=== PATIENT | female | born 1970 | race Caucasian/White ===

== ENCOUNTER 2021-07-01 08:00 | Outpatient (RCR) | payer OTHER | END 2021-07-08 | disposition home or self-care (01) | DX: M54.5 Low back pain (principal); M54.2 Cervicalgia; K21.9 Gastro-esophageal reflux disease without esophagitis; F17.210 Nicotine dependence, cigarettes, uncomplicated; Z85.820 Personal history of malignant melanoma of skin ==

== ENCOUNTER 2021-09-01 08:50 | Outpatient (RCR) | payer OTHER | END 2021-10-17 | disposition home or self-care (01) | DX: M54.2 Cervicalgia (principal); M54.50 Low back pain, unspecified ==

== ENCOUNTER → 2022-01-06 | Outpatient (CLI) | payer OTHER ==
--- NOTE | 2022-01-06 15:59 | Diagnostic Imaging Report ---
INDICATION: Cervical radiculopathy. Neck pain. COMPARISON: None FINDINGS: Frontal, lateral, and open-mouth radiographic views of the cervical spine were obtained. Cervical spine is seen down to the C7-T1 level on the lateral view. Evaluation of static alignment shows slight grade 1 anterolisthesis at C2-C3, C3-C4, and C7-T1 levels. There is also slight grade 1 retrolisthesis at the C5-C6 and C6-C7 levels. There is no evidence of jumped facets. Vertebral body heights are maintained. There is no acute fracture. There are moderate multilevel degenerative changes consistent with intervertebral disc height loss as well as multilevel anterior and posterior endplate osteophyte formations and multilevel facet arthropathy. These changes appear greatest at the C5-C6 and C6-C7 levels. Open-mouth view shows normal C1-C2 alignment. IMPRESSION: 1. No acute fracture or dislocation of the cervical spine. 2. Moderate multilevel degenerative changes, as described above. Dictated by: Dictated on workstation # [id number]
== END ==
LOC: RAD 12:59
PROVIDERS: ATTEND Anesthesiology Pain Medicine
DX: M47.22 Other spondylosis with radiculopathy, cervical region (principal); M43.13 Spondylolisthesis, cervicothoracic region
CPT/HCPCS: 72040

== ENCOUNTER 2022-01-30 09:12 | Outpatient (RCR) | payer OTHER | END 2022-02-14 | disposition home or self-care (01) | PROVIDERS: ATTEND Family Medicine | DX: M54.2 Cervicalgia (principal); M54.50 Low back pain, unspecified ==

== ENCOUNTER → 2022-03-06 | Outpatient (CLI) | payer OTHER ==
--- NOTE | 2022-03-06 13:42 | Diagnostic Imaging Report ---
INDICATION: FALL WITH PAIN COMPARISON: None. FINDINGS: 3 views of the right wrist demonstrate no acute fracture or dislocation. There are no focal osseous lesions. No avascular necrosis is seen. The visualized soft tissue structures are unremarkable. The pronator fat pad is not displaced. There are no radio opaque foreign bodies. IMPRESSION: 1. No acute fracture or dislocation in the right wrist. Dictated by: Dictated on workstation # [id number]
== END ==
LOC: RAD 11:35
PROVIDERS: ATTEND Nurse Practitioner Family
DX: M25.531 Pain in right wrist (principal)
CPT/HCPCS: 73110

== ENCOUNTER 2022-03-12 08:15 | Outpatient (RCR) | payer OTHER | END 2022-03-17 | disposition home or self-care (01) | PROVIDERS: ATTEND Family Medicine | DX: M54.2 Cervicalgia (principal); M53.3 Sacrococcygeal disorders, not elsewhere classified; K21.9 Gastro-esophageal reflux disease without esophagitis ==

== ENCOUNTER → 2022-09-15 | Outpatient (CLI) | payer OTHER ==
--- NOTE | 2022-09-15 09:53 | Diagnostic Imaging Report ---
INDICATION: Radiculopathy, pain COMPARISON: None available TECHNIQUE: Two radiographs of the left hip dated 09/15/2022. FINDINGS: No acute fracture or dislocation. No destructive osseous process. Minimal joint space narrowing of the left hip. The left femoral head maintains its normal shape and contour. Left sacroiliac joint is intact. IMPRESSION: No acute osseous abnormality with minimal degenerative changes present. Dictated by: Dictated on workstation # [id number]
--- NOTE | 2022-09-15 10:12 | Diagnostic Imaging Report ---
INDICATION: Spondylosis, pain. COMPARISON: None available. TECHNIQUE: Five radiographs of the lumbar spine including flexion and extension views were obtained dated 09/15/2022. FINDINGS: Five lumbar type vertebral bodies are present. Moderate apex right curvature of the lumbar spine is noted. The L2 vertebral body is slightly positioned to the right of L1. No significant anterolisthesis or retrolisthesis. No abnormal translational motion with flexion and extension. Besides endplate degenerative changes, vertebral body heights are well-maintained. Endplate degenerative changes are greatest at L2/L3 and L3/L4. Severe disc space height loss at L2/L3 and L3/L4, particularly on the left. Prominent anterior osteophytes at L2/L3 with additional multilevel lateral osteophytes. No acute fracture. The sacroiliac joints are intact. IMPRESSION: No acute osseous abnormality. Moderate apex right curvature of the lumbar spine with associated at least moderate multilevel degenerative changes, greatest at L2/L3 and L3/L4. No abnormal translational motion with flexion and extension. Dictated by: Dictated on workstation # [id number]
--- NOTE | 2022-09-15 11:09 | Diagnostic Imaging Report ---
PROCEDURE: MRI lumbar spine. TECHNIQUE: Multiplanar, multisequence MRI of the lumbar spine was performed without contrast. INDICATION: Chronic lower back pain. COMPARISON: None FINDINGS: For the purposes of this exam, last well-formed disc space is noted at the L5-S1 level. Evaluation static alignment shows moderate dextro scoliotic deformity epicentered at the L2-L3 level. There is no significant anteroretrolisthesis. There is no evidence of jumped facets. Vertebral body heights are maintained. There is no acute fracture. Evaluation marrow signal demonstrates multilevel endplate Modic changes. There is also multilevel intervertebral disc height loss with mild multilevel anterior posterior disc bulging. Visualized portions of distal cord are unremarkable. Conus terminates at approximately the L1-L2 level. No abnormal intrathecal filling defects are seen. Pre and paravertebral soft tissue structures are unremarkable. Axial images demonstrate the following: T12-L1: There is no large disc bulge or focal protrusion. There is no significant spinal canal or neuroforaminal stenosis. L1-L2: There is broad-based posterior disc bulge. This results in minimal narrowing of the spinal canal and bilateral neural foramen. L2-L3: There is disc osteophyte complex formation extending asymmetrically posteriorly and laterally on the left. As s result, there is moderate stenosis of the left neuroforamen and mild asymmetric narrowing of the spinal canal. Right neuroforamen is unremarkable. L3-L4: There is asymmetric prominent endplate disc osteophyte complex formation extending laterally to the left. There is also bilateral facet arthropathy and ligament flavum laxity. As a result, there is severe stenosis of the left neuroforamen and mild narrowing of the spinal canal. Right neuroforamen is unremarkable. L4-L5: There is asymmetric right lateral endplate disc osteophyte complex formation as well as broad-based posterior disc bulge and bilateral ligamentum flavum laxity and facet arthropathy. As a result, there is severe stenosis of the right neuroforamen and right lateral recess. There is also mild narrowing of the spinal canal and left neuroforamen. L5-S1: There is no large disc bulge or focal protrusion. There is no significant spinal canal or neuroforaminal stenosis. IMPRESSION: 1. Moderate dextroscoliotic deformity with moderate multilevel degenerative changes of the lumbar spine as described above. 2. No acute fracture or dislocation. Dictated by: Dictated on workstation # [id number]
== END ==
LOC: RAD 07:17
PROVIDERS: ATTEND Pain Medicine Interventional Pain Medicine
DX: M47.816 Spondylosis without myelopathy or radiculopathy, lumbar region (principal); M51.26 Other intervertebral disc displacement, lumbar region; M48.061 Spinal stenosis, lumbar region without neurogenic claudication
CPT/HCPCS: 72110; 72148; 73502

== ENCOUNTER 2023-04-08 15:51 | Outpatient (RCR) | payer OTHER | END 2023-04-16 | disposition home or self-care (01) | PROVIDERS: ATTEND Physical Medicine & Rehabilitation | DX: M47.816 Spondylosis without myelopathy or radiculopathy, lumbar region (principal); S76.311D Strain of muscle, fascia and tendon of the posterior muscle group at thigh level, right thigh, subsequent encounter; M51.36 Other intervertebral disc degeneration, lumbar region ==

== ENCOUNTER → 2023-05-07 | Outpatient (CLI) | payer OTHER ==
--- NOTE | 2023-05-12 14:15 | Diagnostic Imaging Report ---
3-D bilateral screening mammogram with CAD. The current study was also evaluated with a Computer Aided Detection (CAD) system. This study was compared to the prior exams of 07/15/2021 and 04/30/20. At this time there are no current complaints. As noted on the previous exams there are bilateral breast implants in place. The implants seems similar to the prior study. There is no sign of an extracapsular rupture of either implant. The fibroglandular tissue overlying the implants is heterogeneously dense. This does limit the sensitivity of this exam. Overall, there has been no significant change since the prior study. There is no primary or secondary sign of malignancy noted. IMPRESSION: 1. There is no evidence of malignancy. 2. The bilateral breast implants appear stable. ACR BI-RADS Category 1: Negative. Result letter will be mailed to the patient. Note: At least 10% of breast cancer is not imaged by mammography. Dictated by: Dictated on workstation # [id number]
== END ==
LOC: RAD 10:08
PROVIDERS: ATTEND Family Medicine
DX: Z12.31 Encounter for screening mammogram for malignant neoplasm of breast (principal); Z98.82 Breast implant status
CPT/HCPCS: 77063; 77067

== ENCOUNTER 2023-05-14 09:56 | Outpatient (RCR) | payer OTHER | END 2023-05-17 | disposition home or self-care (01) | PROVIDERS: ATTEND Physical Medicine & Rehabilitation | DX: M47.816 Spondylosis without myelopathy or radiculopathy, lumbar region (principal); S76.311D Strain of muscle, fascia and tendon of the posterior muscle group at thigh level, right thigh, subsequent encounter; M51.36 Other intervertebral disc degeneration, lumbar region; I10 Essential (primary) hypertension; K21.9 Gastro-esophageal reflux disease without esophagitis; X58.XXXD Exposure to other specified factors, subsequent encounter ==

== ENCOUNTER 2023-06-03 08:30 | Outpatient (RCR) | payer OTHER | END 2023-06-17 | disposition home or self-care (01) | PROVIDERS: ATTEND Physical Medicine & Rehabilitation | DX: M47.816 Spondylosis without myelopathy or radiculopathy, lumbar region (principal); S76.311D Strain of muscle, fascia and tendon of the posterior muscle group at thigh level, right thigh, subsequent encounter; M51.36 Other intervertebral disc degeneration, lumbar region; I10 Essential (primary) hypertension; K21.9 Gastro-esophageal reflux disease without esophagitis; X58.XXXD Exposure to other specified factors, subsequent encounter ==

== ENCOUNTER 2023-09-13 14:37 | Emergency (ER) | payer OTHER ==
[~2023-09-13] VITALS: Ht 175 cm; Wt 68.0 kg
--- NOTE | 2023-09-13 15:17 | ED Lower Extremity ---
General Chief Complaint: Lower Extremity Stated Complaint: FALL | LT FOOT INJ Nursing Triage Note: FELL AFTER COMING DOWN AND MISSION LAST STEP INJURING HER LEFT ANKLE AND RIGHT KNEE Source: family Exam Limitations: no limitations History of Present Illness Date Seen by Provider: Sep 13, 2023 Time Seen by Provider: 15:09 Initial Comments This is a well-appearing 49-year-old female who presented to the ER with complaints of left foot pain after tripping on stairs around 1330 this afternoon. Painful to walk on, better with rest. Nothing taken for pain prior to arrival. Notes she did hit right knee but states has only a mild ache, no swelling, no pain to touch, still has good range of motion. No numbness or tingling distal to left foot injury. No injury to head or neck. Allergies and Home Medications Patient Home Medication List Home Medication List Reviewed: Yes Review of Systems Constitutional: no symptoms reported Musculoskeletal: other (left dorsal and lateral foot pain ) Skin: other (bruise on top and side of foot ) Psychiatric/Neurological: No Symptoms Reported Past Hvudnwe-Hplkxp-Xgppei Hx Patient Social History Tobacco Use?: Yes Tobacco type used: Cigarettes Smoking Status: Current Everyday Smoker Use of E-Cig and/or Vaping dev: No Substance use?: No Alcohol Use?: Yes Alcohol type: Beer Alcohol Frequency: Couple times a week Immunizations Up To Date Influenza Vaccine Up-to-Date: No; Not Current First/Initial COVID19 Vaccinat: NOT VACC Past Medical History Surgery/Hospitalization HX: GERD, DEPRESSION, CHRONIC PAIN, HTN DENIES SURG Physical Exam Vital Signs Vital Signs - First Documented 09/13/23 14:42 Temp 36.8 Pulse 65 Resp 18 B/P (MAP) 177/105 (129) Pulse Ox 100 O2 Delivery Room Air Capillary Refill : Less Than 3 Seconds Height, Weight, BMI Height: '" Weight: lbs. oz. kg; 22.00 BMI Method: General Appearance: WD/WN, no apparent distress HEENT: PERRL/EOMI, normal ENT inspection Neck: full range of motion, normal inspection Cardiovascular: regular rate, rhythm, no edema Respiratory: lungs clear, normal breath sounds, no respiratory distress Knees: bilateral knee non-tender, bilateral knee normal inspection, bilateral knee normal range of motion Ankles: bilateral ankle non-tender, bilateral ankle normal inspection, bilateral ankle normal range of motion, bilateral ankle no evidence of injury Feet: right foot non-tender, right foot normal inspection, right foot normal range of motion, right foot no evidence of injury; left foot bone tenderness (dorsal aspect of proximal mid foot), left foot ecchymosis Neurologic/Tendon: normal sensation, normal motor functions, normal tendon functions Neurologic/Psychiatric: alert, normal mood/affect, oriented x 3 Skin: normal color, warm/dry Progress/Results/Core Measures Results/Orders My Orders Orders - MARIA C WHITAKER APRN Foot, Left, 3 Views (09/13/23 15:13) Vital Signs/I&O 09/13/23 14:42 Temp 36.8 Pulse 65 Resp 18 B/P (MAP) 177/105 (129) Pulse Ox 100 O2 Delivery Room Air Blood Pressure Mean: 129 Progress Progress Note : Progress Note Patient examined no acute distress. X-ray shows nondisplaced navicular fracture on the dorsal aspect of her left foot. Placed in walking boot, referral sent to Dr. Samuels. Patient to call to schedule if she does not hear from clinic. States that she is already established and should have no problems following that. Discharge plan reviewed and she is agreeable to plan. Diagnostic Imaging Diagonstic Imaging: Xray Comments [facility], [place] NAME: LAURIE GOMES [facility] REC#: [id number] PT STATUS: REG ER : 1970 PHYSICIAN: MARIA C WHITAKER APRN ADMIT DATE: 09/13/23/ER Draft Date of Exam:09/13/23 FOOT, LEFT, 3 VIEWS Clinical indication: Patient fell after coming down and missing last step injuring her left ankle and right knee. Exam: X-ray left foot, 3 views. Comparisons: None. Findings and impression: There is a nondisplaced fracture involving the dorsal aspect of navicular bone. There are small spurs involving the 1st MTP joint. There is no other significant bony abnormality. Dictated on workstation # [id number] Dict: 09/13/23 1546 Trans: 09/13/23 1551 CV [id number] Interpreted by: PORFIRIO SHAIKH MD Electronically signed by: Departure Impression Primary Impression: Navicular fracture, foot Disposition: 01 HOME, SELF-CARE Condition: Improved Departure-Patient Inst. Decision time for Depature: 15:57 Referrals: KALYANI WEBB MD (PCP/Family) Primary Care Physician BRISA SAMUELS MD Patient Instructions: Foot Fracture ED Add. Discharge Instructions: Plan: 1. Follow up with Dr. Samuels, call office to schedule appointment. 2. Rest, ice 20 minutes, elevate above heart, especially for first 72 hours. 3 Walking boot when walking around. 4. Tylenol and Ibuprofen PRN per package. All discharge instructions reviewed with patient and/or family. Voiced understanding. Copy Copies To 1: BRISA SAMUELS MD, STORMY D [employer]INEER Sep 13, 2023 15:17
--- NOTE | 2023-09-13 15:52 | Diagnostic Imaging Report ---
Clinical indication: Patient fell after coming down and missing last step injuring her left ankle and right knee. Exam: X-ray left foot, 3 views. Comparisons: None. Findings and impression: There is a nondisplaced fracture involving the dorsal aspect of navicular bone. There are small spurs involving the 1st MTP joint. There is no other significant bony abnormality. Dictated by: Dictated on workstation # [id number]
[2023-09-13 16:04] VITALS: BP 177/105
== END 2023-09-13 16:04 | disposition home or self-care (01) ==
LOC: EDUNIT# 14:37 → ER 14:39
DX: S92.255A Nondisplaced fracture of navicular [scaphoid] of left foot, initial encounter for closed fracture (principal); F17.210 Nicotine dependence, cigarettes, uncomplicated; W10.9XXA Fall (on) (from) unspecified stairs and steps, initial encounter; W22.8XXA Striking against or struck by other objects, initial encounter
CPT/HCPCS: 73630; 99283; L2114